=== PATIENT | male | born 1965 | race Caucasian/White ===

== ENCOUNTER → 2016-09-22 | Outpatient (CLI) | payer BC | LOC: LAB.O 07:14 | PROVIDERS: ATTEND Family Medicine | DX: K76.0 Fatty (change of) liver, not elsewhere classified (principal) ==

== ENCOUNTER → 2016-11-23 | Outpatient (CLI) | payer BC | END | disposition home or self-care (01) | LOC: LAB.O 16:02 | DX: R74.0 Nonspecific elevation of levels of transaminase and lactic acid dehydrogenase [LDH] (principal) ==

== ENCOUNTER 2016-12-06 23:02 | Emergency (ER) | payer BC ==
--- NOTE | 2016-12-06 23:37 | ED.PDOC ---
History of Present Illness - General Chief Complaint: General Stated Complaint: weakness Time Seen by Provider: 12/06/16 23:23 Source: patient, RN notes reviewed, Vital Signs reviewed, family - Daughter Exam Limitations: no limitations - History of Present Illness Initial Comments: Patient is a 51 y/o male with a history of end stage liver disease who is brought in by his family. He has been feeling weak over the past few days and started becoming shaky today. He is sleeping all the time. He is not eating much because it make his sugars skyrocket. He has elevated ammonia often and is on chronic lactulose. He is having at least 3 large soft bowel movements daily. He has lost about 10 pounds in the last month. He has not seen his processing clerk for a month and has an appointment with him and his recreational vehicle resort manager next week. Timing/Duration: 24 hours Severity: moderate, severe Improving Factors: nothing Worsening Factors: nothing Associated Symptoms: weakness Allergies/Adverse Reactions: Allergies NO KNOWN ALLERGY Allergy (Verified 09/06/16 07:34) Home Medications: Ambulatory Orders Glimepiride 2 mg PO BEDTIME 09/06/16 Glimepiride 4 mg PO AC 09/06/16 Sitagliptin-Metformin HCl [Janumet Xr 50-1000 mg] 1 tab PO BID 09/06/16 Lactulose Syrup [Chronulac] 30 ml PO TID #90 ud 09/07/16 Milk Thistle (Silybum Marianum [Milk Thistle] 125 mg PO DAILY 12/06/16 Omeprazole Magnesium [Prilosec Otc] 20 mg PO AC 12/06/16 Saw Maribel (Serenoa Repens) [Saw Maribel] 450 mg PO DAILY 12/06/16 Review of Systems - Review of Systems Constitutional: States: malaise, weakness EENTM: States: no symptoms reported Respiratory: States: no symptoms reported Cardiology: States: no symptoms reported Gastrointestinal/Abdominal: States: no symptoms reported Genitourinary: States: no symptoms reported Musculoskeletal: States: no symptoms reported Skin: States: no symptoms reported Neurological: States: weakness Endocrine: States: unexplained weight loss, other - elevated glucose Hematologic/Lymphatic: States: no symptoms reported All other Systems: Reviewed and Negative Past Medical History (General) - Patient Medical History Hx Seizures: No Hx Stroke: No Hx Dementia: No Hx Asthma: No Hx of COPD: No Hx Cardiac Disorders: No Hx Congestive Heart Failure: No Hx Pacemaker: No Hx Hypertension: No Hx Thyroid Disease: No Hx Diabetes: Yes Hx Gastroesophageal Reflux: Yes Hx Renal Disease: No Hx Cancer: No Hx of HIV: No Hx Hepatitis C: Yes Hx MRSA: No Surgical History: other - Vaccination History Hx Tetanus, Diphtheria Vaccination: No Hx Influenza Vaccination: No Hx Pneumococcal Vaccination: No Immunizations Up to Date: No - Social History Hx Tobacco Use: No Hx Chewing Tobacco Use: Yes Hx Alcohol Use: No - history Hx Substance Use: No Hx Substance Use Treatment: No Hx Depression: No Feels Threatened In Home Enviroment: No Feels Threatened In a Relationship: No Hx Physical Abuse: No Hx Emotional Abuse: No Hx Suspected Abuse: No Family Medical History - Family History Father Family History: Unknown Living Status: Hx Family Asthma: No Hx Family Congestive Heart Failure: No Hx Family Hypertension: No Hx Family Stroke: No Hx Cardiac Disease: Yes Hx Family Diabetes: Yes Hx Family Cancer: No Physical Exam - Physical Exam General Appearance: Comfortable, No apparent distress, Lethargic Ears, Nose, Throat: hearing grossly normal, normal ENT inspection Respiratory: lungs clear, normal breath sounds, no respiratory distress, no accessory muscle use Cardiovascular/Chest: regular rate, rhythm, no edema, no gallop, no murmur Gastrointestinal/Abdominal: normal bowel sounds, non tender, soft, no organomegaly Back Exam: no CVA tenderness Neurologic: oriented x 3, depressed affect Skin Exam: warm/dry Progress - Progress Progress: 12/07/16 01:05 Since Patient processing clerk is at [facility], Patient's family is requesting that he be transferred there. Initial call to [facility] was made as [phone] with a message left. I called back at [phone] and was able to speak with Dr. Murphy who accepted transfer. - Results/Orders Results/Orders: 12/06/16 12/06/16 12/07/16 23:10 23:15 00:58 Temperature 99.1 F 98.8 F Pulse Rate [ 94 H 85 monitor] Respiratory 18 18 16 Rate Blood Pressure 125/75 122/74 [Left Arm] O2 Sat by Pulse 95 95 Oximetry 12/07/16 00:05 URINE CULTURE W/COLONY COUNT Stat 12/07/16 00:48 Meropenem [Merrem] 1 gm Sodium Chl 0.9% 50Ml Min-Bag+ [NS 50ml MINI-BAG+] 50 ml IVPB ONCE 12/07/16 00:50 LACTIC ACID Stat BLOOD CULTURE Stat 12/07/16 00:59 Sodium Chloride 0.9% 1000ML [Ns 1000 ml] 1,000 ml IVS ONCE Laboratory Results WBC 4.4 K/mm3 (4.8-10.8) L 12/06/16 23:24 RBC 3.38 M/mm3 (4.70-6.10) L 12/06/16 23:24 Hgb 12.4 gm/dL (14.0-18.0) L 12/06/16 23:24 Hct 35.7 % (42.0-52.0) L 12/06/16 23:24 MCV 105.6 fl (80.0-94.0) H 12/06/16 23:24 MCH 36.6 pg (27.0-31.0) H 12/06/16 23:24 MCHC 34.8 g/dL (33.0-37.0) 12/06/16 23:24 RDW 13.4 % (11.5-14.5) 12/06/16 23:24 Plt Count 88 K/mm3 (130-400) L 12/06/16 23:24 MPV 6.6 fl (7.40-10.4) L 12/06/16 23:24 Absolute Neuts (auto) 2.40 K/uL (1.8-6.8) 12/06/16 23:24 Absolute Lymphs (auto) 1.00 K/uL (1.0-3.4) 12/06/16 23:24 Absolute Monos (auto) 0.60 K/uL (0.2-0.8) 12/06/16 23:24 Absolute Eos (auto) 0.30 K/uL (0.0-0.4) 12/06/16 23:24 Absolute Basos (auto) 0.10 K/uL (0.0-0.1) 12/06/16 23:24 Neutrophils % 54.9 % (42.0-78.0) 12/06/16 23:24 Lymphocytes % 23.5 % (20.0-50.0) 12/06/16 23:24 Monocytes % 13.9 % (2.0-9.0) H 12/06/16 23:24 Eosinophils % 6.3 % (1.0-5.0) H 12/06/16 23:24 Basophils % 1.4 % (0.0-2.0) 12/06/16 23:24 PT 13.8 SECONDS (9.4-12.5) H 12/07/16 00:31 INR 1.220 12/07/16 00:31 PTT (SP) 36.0 SECONDS (25.1-36.5) 12/07/16 00:31 Sodium 136 mmol/L (135-145) 12/06/16 23:24 Potassium 3.7 mmol/L (3.6-5.0) 12/06/16 23:24 Chloride 104 mmol/L (101-111) 12/06/16 23:24 Carbon Dioxide 27 mmol/L (21-31) 12/06/16 23:24 Anion Gap 8.7 (12-18) L 12/06/16 23:24 BUN 10 mg/dL (7-18) 12/06/16 23:24 Creatinine < 0.40 mg/dL (0.6-1.3) L 12/06/16 23:24 BUN/Creatinine Ratio 25.0 (10-20) H 12/06/16 23:24 Random Glucose 264 mg/dL (70-105) H 12/06/16 23:24 Serum Osmolality 280.2 mOsm/L (275-295) 12/06/16 23:24 Calcium 9.1 mg/dL (8.4-10.2) 12/06/16 23:24 Magnesium 1.7 mg/dL (1.8-2.5) L 12/07/16 00:00 Total Bilirubin 2.9 mg/dL (0.2-1.0) H* 12/06/16 23:24 AST 35 IU/L (10-42) 12/06/16 23:24 ALT 28 IU/L (10-60) 12/06/16 23:24 Alkaline Phosphatase 201 IU/L (42-121) H 12/06/16 23:24 Ammonia 123 umol/L (10-35) H* 12/06/16 23:24 Serum Total Protein 5.6 gm/dL (6.4-8.2) L 12/06/16 23:24 Albumin 2.7 g/dl (3.2-5.5) L 12/06/16 23:24 Globulin 2.9 gm/dL (2.3-3.5) 12/06/16 23:24 Albumin/Globulin Ratio 0.9 (1.1-1.9) L 12/06/16 23:24 Urine Color Yellow (Yellow) 12/07/16 00:05 Urine Appearance Cloudy (Clear) 12/07/16 00:05 Urine pH 7.0 (4.5-7.8) 12/07/16 00:05 Ur Specific [place] 1.020 (1.005-1.030) 12/07/16 00:05 Urine Protein 30 mg/dL 12/07/16 00:05 Urine Glucose (UA) Negative mg/dL (Negative) 12/07/16 00:05 Urine Ketones Negative mg/dL (NEGATIVE) 12/07/16 00:05 Urine Blood Moderate (Negative) H 12/07/16 00:05 Urine Nitrite Positive H 12/07/16 00:05 Urine Bilirubin Negative (NEGATIVE) 12/07/16 00:05 Urine Urobilinogen 4.0 mg/dL (0.2-1.0) H 12/07/16 00:05 Ur Leukocyte Esterase Moderate (Negative) H 12/07/16 00:05 Urine RBC 30-40 /hpf H 12/07/16 00:05 Urine WBC Tntc /hpf H 12/07/16 00:05 Ur Epithelial Cells 0 /hpf 12/07/16 00:05 Urine Bacteria 1+ 12/07/16 00:05 Departure - Departure Clinical Impression: Lethargy, Diabetes 1.5, managed as type 2 Urinary tract infection Qualifiers: Urinary tract infection type: site unspecified Hematuria presence: with hematuria Qualifier Code: (N39.0) Urinary tract infection, site not specified Hepatic cirrhosis Qualifiers: Hepatic cirrhosis type: unspecified hepatic cirrhosis Ascites presence: without ascites Qualifier Code: (K74.60) Unspecified cirrhosis of liver Hepatitis C infection Qualifiers: Viral hepatitis chronicity: chronic Hepatic coma status: without hepatic coma Qualifier Code: (B18.2) Chronic viral hepatitis C Time of Disposition: :06 Disposition: Transfer to Hospital Home Medications: Ambulatory Orders Glimepiride 2 mg PO BEDTIME 09/06/16 Glimepiride 4 mg PO AC 09/06/16 Sitagliptin-Metformin HCl [Janumet Xr 50-1000 mg] 1 tab PO BID 09/06/16 Lactulose Syrup [Chronulac] 30 ml PO TID #90 ud 09/07/16 Milk Thistle (Silybum Marianum [Milk Thistle] 125 mg PO DAILY 12/06/16 Omeprazole Magnesium [Prilosec Otc] 20 mg PO AC 12/06/16 Saw Maribel (Serenoa Repens) [Saw Maribel] 450 mg PO DAILY 12/06/16 Transfer to Outside Facility - Transfer Information Accepting Provider:: Dr. Murphy Accepting Facility: [facility] Reason for Transfer: required specialist not available
[2016-12-07] MEDS ORDERED: MEROPENEM 1 GM in SODIUM CHL 0.9% 50ML MIN-BAG+ 50 ML IVPB ONE (00:48)
[2016-12-07] MEDS ORDERED: SODIUM CHLORIDE 0.9% 1000ML 1,000 ML ONE (00:49)
[2016-12-07] MEDS ORDERED: MEROPENEM 1 GM VIAL IVPB ONE (00:54)
[2016-12-07] MEDS ORDERED: SODIUM CHL 0.9% 50ML MIN-BAG+ 50 ML IVPB ONE (00:54)
[2016-12-07 00:59] VITALS: BP 122/74; TEMP 98.8
[2016-12-07] MEDS ORDERED: SODIUM CHLORIDE 0.9% 1000ML 1,000 ML IVS ONE (00:59)
[2016-12-07 01:25] VITALS: O2SAT 96
== END 2016-12-07 01:34 | disposition short-term general hospital (02) ==
LOC: ER 23:02
DX: K74.60 Unspecified cirrhosis of liver (principal); E11.9 Type 2 diabetes mellitus without complications; B18.2 Chronic viral hepatitis C; K21.9 Gastro-esophageal reflux disease without esophagitis; Z87.891 Personal history of nicotine dependence; Z79.899 Other long term (current) drug therapy

== ENCOUNTER → 2017-01-05 | Outpatient (CLI) | payer BC, OTHER | END | disposition home or self-care (01) | LOC: LAB.O 08:23 | PROVIDERS: ATTEND Psychiatry & Neurology Neurology | DX: K72.90 Hepatic failure, unspecified without coma (principal); Z94.2 Lung transplant status ==

== ENCOUNTER 2017-01-13 19:46 | Emergency (ER) | payer BC, OTHER ==
--- NOTE | 2017-01-13 19:57 | ED.PDOC ---
History of Present Illness - General Chief Complaint: General Stated Complaint: sleepy Time Seen by Provider: 01/13/17 19:50 Source: patient, RN notes reviewed, Vital Signs reviewed, family Exam Limitations: no limitations - History of Present Illness Initial Comments: Patient is a 51 y/o male with a history of cirrhosis who was brought in by EMS because of lethargy. Patient's tried to wake him earlier, but he would not completely wake up. He has been more drowsy today. He has only had one bowel movement today. He has had two doses of lactulose today. When EMS arrived, they were able to arouse him and he did not want to come in, however his insisted, so he agreed. He denies any pain. He is just very tired. Timing/Duration: other - Since this AM Severity: moderate Improving Factors: nothing Worsening Factors: nothing Associated Symptoms: weakness Allergies/Adverse Reactions: Allergies NO KNOWN ALLERGY Allergy (Verified 09/06/16 07:34) Home Medications: Ambulatory Orders Glimepiride 2 mg PO BEDTIME 09/06/16 Glimepiride 4 mg PO AC 09/06/16 Sitagliptin-Metformin HCl [Janumet Xr 50-1000 mg] 1 tab PO BID 09/06/16 Lactulose Syrup [Chronulac] 30 ml PO TID #90 ud 09/07/16 Milk Thistle (Silybum Marianum [Milk Thistle] 125 mg PO DAILY 12/06/16 Omeprazole Magnesium [Prilosec Otc] 20 mg PO AC 12/06/16 Saw [place] (Serenoa Repens) [Saw [place]] 450 mg PO DAILY 12/06/16 Review of Systems - Review of Systems Constitutional: States: malaise, weakness EENTM: States: no symptoms reported Respiratory: States: no symptoms reported Cardiology: States: no symptoms reported Gastrointestinal/Abdominal: States: no symptoms reported Genitourinary: States: no symptoms reported Musculoskeletal: States: no symptoms reported Skin: States: no symptoms reported Neurological: States: no symptoms reported Endocrine: States: no symptoms reported Hematologic/Lymphatic: States: no symptoms reported All other Systems: Reviewed and Negative Past Medical History (General) - Patient Medical History Hx Seizures: No Hx Stroke: No Hx Dementia: No Hx Asthma: No Hx of COPD: No Hx Cardiac Disorders: No Hx Congestive Heart Failure: No Hx Pacemaker: No Hx Hypertension: No Hx Thyroid Disease: No Hx Diabetes: Yes Hx Gastroesophageal Reflux: Yes Hx Renal Disease: No Hx Cancer: No Hx of HIV: No Hx Hepatitis C: Yes Hx MRSA: No - Vaccination History Hx Tetanus, Diphtheria Vaccination: No Hx Influenza Vaccination: No Hx Pneumococcal Vaccination: No - Social History Hx Tobacco Use: No Hx Chewing Tobacco Use: Yes Hx Alcohol Use: No - history Hx Substance Use: No Hx Substance Use Treatment: No Hx Depression: No Hx Physical Abuse: No Hx Emotional Abuse: No Hx Suspected Abuse: No Family Medical History - Family History Father Family History: Unknown Living Status: Hx Family Asthma: No Hx Family Congestive Heart Failure: No Hx Family Hypertension: No Hx Family Stroke: No Hx Cardiac Disease: Yes Hx Family Diabetes: Yes Hx Family Cancer: No Physical Exam - Physical Exam General Appearance: Frail, No apparent distress, Lethargic, Other - Patient does wake and answer questions appropriately, however, he quickly goes back to sleep. Ears, Nose, Throat: hearing grossly normal, normal ENT inspection Respiratory: lungs clear, normal breath sounds, no respiratory distress, no accessory muscle use Cardiovascular/Chest: regular rate, rhythm, no edema, no gallop, no murmur Gastrointestinal/Abdominal: non tender, soft, abnormal bowel sounds - hyperactive, hepatomegaly Extremity: non-tender, normal inspection, no pedal edema, no calf tenderness, other - Left BKA Neurologic: oriented x 3 Progress - Results/Orders Results/Orders: 01/13/17 01/13/17 19:55 21:55 Temperature 98.0 F Pulse Rate [ 94 H 91 H left arm] Respiratory 16 16 Rate Blood Pressure 136/84 136/72 [Left Arm] O2 Sat by Pulse 90 L 94 L Oximetry 01/13/17 19:57 URINALYSIS Stat Laboratory Results WBC 3.2 K/mm3 (4.8-10.8) L 01/13/17 20:00 RBC 3.36 M/mm3 (4.70-6.10) L 01/13/17 20:00 Hgb 12.3 gm/dL (14.0-18.0) L 01/13/17 20:00 Hct 35.1 % (42.0-52.0) L 01/13/17 20:00 MCV 104.4 fl (80.0-94.0) H 01/13/17 20:00 MCH 36.6 pg (27.0-31.0) H 01/13/17 20:00 MCHC 35.1 g/dL (33.0-37.0) 01/13/17 20:00 RDW 13.9 % (11.5-14.5) 01/13/17 20:00 Plt Count 74 K/mm3 (130-400) L 01/13/17 20:00 MPV 6.9 fl (7.40-10.4) L 01/13/17 20:00 Absolute Neuts (auto) 1.20 K/uL (1.8-6.8) L 01/13/17 20:00 Absolute Lymphs (auto) 1.30 K/uL (1.0-3.4) 01/13/17 20:00 Absolute Monos (auto) 0.40 K/uL (0.2-0.8) 01/13/17 20:00 Absolute Eos (auto) 0.20 K/uL (0.0-0.4) 01/13/17 20:00 Absolute Basos (auto) 0.00 K/uL (0.0-0.1) 01/13/17 20:00 Neutrophils % 38.6 % (42.0-78.0) L 01/13/17 20:00 Lymphocytes % 41.6 % (20.0-50.0) 01/13/17 20:00 Monocytes % 13.3 % (2.0-9.0) H 01/13/17 20:00 Eosinophils % 5.4 % (1.0-5.0) H 01/13/17 20:00 Basophils % 1.1 % (0.0-2.0) 01/13/17 20:00 Sodium 137 mmol/L (135-145) 01/13/17 20:00 Potassium 3.9 mmol/L (3.6-5.0) 01/13/17 20:00 Chloride 106 mmol/L (101-111) 01/13/17 20:00 Carbon Dioxide 25 mmol/L (21-31) 01/13/17 20:00 Anion Gap 9.9 (12-18) L 01/13/17 20:00 BUN 10 mg/dL (7-18) 01/13/17 20:00 Creatinine < 0.40 mg/dL (0.6-1.3) L 01/13/17 20:00 BUN/Creatinine Ratio 25.0 (10-20) H 01/13/17 20:00 Random Glucose 262 mg/dL (70-105) H 01/13/17 20:00 Serum Osmolality 281.9 mOsm/L (275-295) 01/13/17 20:00 Calcium 9.3 mg/dL (8.4-10.2) 01/13/17 20:00 Total Bilirubin 2.2 mg/dL (0.2-1.0) H* 01/13/17 20:00 AST 59 IU/L (10-42) H 01/13/17 20:00 ALT 48 IU/L (10-60) 01/13/17 20:00 Alkaline Phosphatase 193 IU/L (42-121) H 01/13/17 20:00 Ammonia 184 umol/L (10-35) H* 01/13/17 20:00 Serum Total Protein 5.9 gm/dL (6.4-8.2) L 01/13/17 20:00 Albumin 2.9 g/dl (3.2-5.5) L 01/13/17 20:00 Globulin 3.0 gm/dL (2.3-3.5) 01/13/17 20:00 Albumin/Globulin Ratio 1.0 (1.1-1.9) L 01/13/17 20:00 Departure - Departure Clinical Impression: Serum ammonia increased, Thrombocytopenia, Lethargy Hepatic cirrhosis Qualifiers: Hepatic cirrhosis type: unspecified hepatic cirrhosis Ascites presence: without ascites Qualified Code(s): K74.60 - Unspecified cirrhosis of liver Time of Disposition: 22:00 Disposition: Transfer to Hospital Condition: Poor Home Medications: Ambulatory Orders Glimepiride 2 mg PO BEDTIME 09/06/16 Glimepiride 4 mg PO AC 09/06/16 Sitagliptin-Metformin HCl [Janumet Xr 50-1000 mg] 1 tab PO BID 09/06/16 Lactulose Syrup [Chronulac] 30 ml PO TID #90 ud 09/07/16 Milk Thistle (Silybum Marianum [Milk Thistle] 125 mg PO DAILY 12/06/16 Omeprazole Magnesium [Prilosec Otc] 20 mg PO AC 12/06/16 Saw [place] (Serenoa Repens) [Saw [place]] 450 mg PO DAILY 12/06/16 Transfer to Outside Facility - Transfer Information Accepting Provider:: Dr. Vargas Accepting Facility: [facility] Reason for Transfer: required specialist not available
[2017-01-13 20:10] VITALS: TEMP 98
[2017-01-13 22:44] VITALS: BP 136/72
[2017-01-13] MEDS ORDERED: SODIUM CHLORIDE 0.9% 1000ML 1,000 ML IVS ONE (22:55)
[2017-01-14 00:04] VITALS: O2SAT 98
== END 2017-01-13 23:10 | disposition short-term general hospital (02) ==
LOC: ER 19:46
DX: K74.60 Unspecified cirrhosis of liver (principal); D69.6 Thrombocytopenia, unspecified; R53.83 Other fatigue; R79.89 Other specified abnormal findings of blood chemistry; K21.9 Gastro-esophageal reflux disease without esophagitis; Z79.899 Other long term (current) drug therapy

== ENCOUNTER → 2017-02-13 | Outpatient (CLI) | payer BC, OTHER | END | disposition home or self-care (01) | LOC: GMAL 17:02 | PROVIDERS: ATTEND Family Medicine | DX: N30.00 Acute cystitis without hematuria (principal) ==

== ENCOUNTER → 2017-03-06 | Outpatient (CLI) | payer BC | END | disposition home or self-care (01) | LOC: GMAL 10:40 | PROVIDERS: ATTEND Family Medicine | DX: N30.00 Acute cystitis without hematuria (principal) ==

== ENCOUNTER → 2017-04-10 | Outpatient (CLI) | payer BC | END | disposition home or self-care (01) | LOC: GMAL 10:33 | PROVIDERS: ATTEND Family Medicine | DX: R31.9 Hematuria, unspecified (principal) ==

== ENCOUNTER → 2017-04-12 | Outpatient (CLI) | payer BC ==
--- NOTE | 2017-04-13 09:14 | US ---
EXAM DESCRIPTION: Renal CLINICAL HISTORY: 52 years Male, HEMATURIA COMPARISON: None available FINDINGS: The right kidney measures 12.1 cm in length. There is no right-sided hydronephrosis or renal cortical thinning. There is a 1.5 centimeter calculus in the inferior pole of the right kidney. The left kidney measures 12.4 cm in length and there is no left-sided hydronephrosis or obstructing nephrolithiasis. Mild splaying of left renal pelvic fat is noted possibly related to an extra renal pelvis. IMPRESSION: 1.5 cm nonobstructing calculus inferior pole right kidney. Probable left-sided extrarenal pelvis without left-sided hydronephrosis or nephrolithiasis. If clinically suspicious of a ureteral calculus, noncontrast CT is suggested. Electronically signed by: Trenton Griffin MD 04/13/2017 9:12 AM CDT Workstation: [email or web address]
--- NOTE | 2017-04-13 09:18 | US ---
EXAM DESCRIPTION: Bladder CLINICAL HISTORY: 52 years Male, HEMATURIA COMPARISON: None. FINDINGS: There is no bladder wall thickening or bladder mass. Prevoid bladder volume 59 mL. Post void bladder volume 22 mL. IMPRESSION: Small amount of residual post void urine in the bladder, otherwise unremarkable exam. No bladder mass. Electronically signed by: Trenton Griffin MD 04/13/2017 9:17 AM CDT Workstation: [email or web address]
== END | disposition home or self-care (01) ==
LOC: US 08:08
PROVIDERS: ATTEND Family Medicine
DX: R31.9 Hematuria, unspecified (principal)

== ENCOUNTER → 2017-06-21 | Outpatient (CLI) | payer BC | END | disposition home or self-care (01) | LOC: GMAL 10:28 | PROVIDERS: ATTEND Family Medicine | DX: Z00.00 Encounter for general adult medical examination without abnormal findings (principal); Z00.01 Encounter for general adult medical examination with abnormal findings ==

== ENCOUNTER → 2017-06-28 | Outpatient (CLI) | payer BC ==
--- NOTE | 2017-06-29 13:50 | US ---
EXAM DESCRIPTION: Abdomen,Complete: Ultrasound. CLINICAL HISTORY: CIRRHOSIS COMPARISON: None Available. TECHNIQUE: Transabdominal scannin-dimensional and Doppler modes. FINDINGS: The gallbladder is normal in size, shape, and echogenicity, with no intraluminal stones or sludge. No fluid around the gallbladder. Borderline wall thickening 3.0 Mm. Common bile duct caliber 3.4 mm which is within normal limits. No stones in the visualized portion of the duct. Not tender with transducer pressure. The liver demonstrates heterogeneously increased echogenicity; contour of the liver capsule is smooth where seen. No fluid around the liver. Intrahepatic biliary ducts are non-dilated. Craniocaudal dimension in the mid-clavicular axis is 11.1 cm. Pancreas head, body, and tail normal in size and echogenicity. Pancreatic duct is not dilated. Normal Doppler vascularity in the catarina hepatis. Abdominal aorta diameter proximal 2.7 cm. Mid 1.9 cm. Distal 1.8 cm. IVC visualized; normal caliber. Spleen homogeneous echoes; long axis measurement is 15 cm. No fluid in the spleno-renal fossa. Right kidney measures 12.0 x 6.4 x 5.2 cm . Normal mid renal cortical thickness. Echogenicity normal with no hydronephrosis, no large calcifications, and no perinephric fluid. Contour minimally lobulated. Vascularity normal. Ureter not visualized. Left kidney measures 13.5 x 5.9 x 6.7 cm normal mid renal cortical thickness. Echogenicity normal with no hydronephrosis, no large calcifications, and no perinephric fluid. Contour minimally lobulated. Vascularity normal. Ureter not visualized. IMPRESSION: 1. No internal echoes in the gallbladder with borderline wall thickening. No fluid around the gallbladder. Nontender during scanning. Normal caliber of the common bile duct. 2. Liver showing heterogeneously increased echogenicity, no enlargement, with smooth capsule. Query history of inflammatory process? Normal intrahepatic ducts. No ascites. Splenomegaly. 3. Normal ultrasound of the pancreas. Normal caliber of the abdominal aorta. 4. Bilateral kidneys upper normal limits in size. Normal echoes with lobulated capsule. No hydronephrosis or perirenal fluid. Electronically signed by: Glen Perrin MD 06/29/2017 1:49 PM CDT
== END | disposition home or self-care (01) ==
LOC: LAB.O 08:48
DX: B19.20 Unspecified viral hepatitis C without hepatic coma (principal); K74.60 Unspecified cirrhosis of liver; R60.9 Edema, unspecified; E55.9 Vitamin D deficiency, unspecified

== ENCOUNTER → 2018-01-01 | Outpatient (CLI) | payer BC | LOC: LAB.O 07:16 | PROVIDERS: ATTEND Internal Medicine | DX: K74.60 Unspecified cirrhosis of liver (principal); K72.90 Hepatic failure, unspecified without coma; R60.9 Edema, unspecified ==

== ENCOUNTER 2018-03-25 05:29 | Day surgery (SDC) | payer BC ==
[2018-03-25] MEDS ORDERED: TROP 1%/CYCLOPEN 1%/PHENYL 2% DROPS ONE (06:00)
[2018-03-25] MEDS ORDERED: MIDAZOLAM INJ 2 MG/2 ML VIAL ONE (07:10)
[2018-03-25] MEDS ORDERED: PROPARACAINE 0.5% OPHTH SOL 15 ML BTTL LEFT_EYE ONE (08:42)
[2018-03-25] MEDS ORDERED: TOBRAMYCIN SULF 0.3 % OPHT SOL 1 DROP LEFT_EYE ONE ×2 (08:44→08:57)
[2018-03-25] MEDS ORDERED: DEXAMETHASONE 0.1% OPHTH SOL 1 DROP LEFT_EYE ONE ×2 (08:44→08:57)
[2018-03-25] MEDS ORDERED: BRIMONIDINE 0.2% OPHTH DROPS LEFT_EYE ONE ×2 (08:45→08:57)
== END 2018-03-25 09:33 | disposition home or self-care (01) ==
LOC: AMB 05:29
PROVIDERS: ATTEND Ophthalmology
DX: H25.12 Age-related nuclear cataract, left eye (principal); I10 Essential (primary) hypertension; E11.36 Type 2 diabetes mellitus with diabetic cataract; K21.9 Gastro-esophageal reflux disease without esophagitis
CPT/HCPCS: 00142; 36416; 66984; 82948; J2250

== ENCOUNTER → 2018-07-16 | Outpatient (CLI) | payer BC ==
--- NOTE | 2018-07-16 17:23 | US ---
EXAM DESCRIPTION: Doppler,Abdomen: ULTRASOUND. CLINICAL HISTORY: CIRRHOSIS COMPARISON: None Available. TECHNIQUE: Transcutaneous scanning: Can-scale and Doppler modes. FINDINGS: Abdominal aorta is normal caliber from the proximal segment to the distal bifurcation measuring 2.2 cm proximally, 1.8 cm. Segment and 1.7 cm distally. Right mid and left hepatic venous flow unremarkable. Central venous flow hepatofugal direction. Hepatic artery flow hepatofugal direction. Peak velocity 60.26 cm/s. Portal venous flow hepatopedal direction. Normal caliber.. IMPRESSION: Vascularity of the liver is unremarkable. Electronically signed by: Glen Perrin MD 07/16/2018 5:22 PM CLINICAL TRANSPLANT COORDINATOR
--- NOTE | 2018-07-16 17:55 | US ---
EXAM DESCRIPTION: Abdomen,Complete: Ultrasound. CLINICAL HISTORY: CIRRHOSIS COMPARISON: Abdominal ultrasound 06/28/2017. Doppler ultrasound of the abdomen on this visit. TECHNIQUE: Transabdominal scannin-dimensional and Doppler modes. FINDINGS: Gallbladder: No intraluminal stones or sludge. Gallbladder wall thickening 3.4 mm. Common bile duct: Normal caliber 4.5 mm. Liver: Long axis of the right lobe is 11.6 cm. Coarse echotexture but not increased. Hepatopedal flow in the portal vein and hepatofugal flow in the hepatic vein. Hepatic artery flow visualized. Pancreas: Not well visualized due to intestinal gas.. Abdominal aorta: Normal caliber from the proximal segment to the bifurcation. IVC: visualized; normal caliber. Spleen normal echogenicity; long axis measurement is 14.4 cm. Right kidney: 12.0 cm long axis. Normal cortical thickness and echogenicity. Bright echogenic object in the inferior pole of the right kidney with acoustic shadowing, measuring 1.7 cm and suggestive of a renal stone. No hydronephrosis. Left kidney: 13.4 cm long axis with normal cortical thickness and echogenicity. Echogenic objects in the inferior pole of the left kidney measuring 11.1 mm and 9.2 mm consistent with renal stones. No hydronephrosis. IMPRESSION: 1. Minimal thickening of the gallbladder wall without fluid. This has increased since the prior study. No intraluminal stones or sludge. Nontender during scanning. Normal caliber of the common bile duct. 2. Coarse echogenic texture in the liver with no enlargement. Normal vascularity. No ascites. Findings are consistent with clinical history. Pancreas was not seen due to intestinal gas. Spleen is borderline enlarged stable since the prior study.. 3. Normal size of the right kidney with no hydronephrosis. 1.7 cm stone in the lower pole. Normal size of the left kidney with no hydronephrosis. 2 stones averaging 1 cm diameter in the lower pole. Stones were not seen in either kidney on the prior study. Electronically signed by: Glen Perrin MD 07/16/2018 5:53 PM FORGING MACHINE HAND
== END ==
LOC: US 08:04
PROVIDERS: ATTEND Internal Medicine
DX: B19.20 Unspecified viral hepatitis C without hepatic coma (principal); K72.90 Hepatic failure, unspecified without coma; K74.60 Unspecified cirrhosis of liver; R60.9 Edema, unspecified

== ENCOUNTER → 2018-08-13 | Outpatient (CLI) | payer BC, OTHER | LOC: LAB.O 07:40 | PROVIDERS: ATTEND Family Medicine | DX: R74.8 Abnormal levels of other serum enzymes (principal) ==

== ENCOUNTER 2018-09-09 22:03 | Emergency (ER) | payer BC, OTHER ==
[2018-09-09] MEDS ORDERED: ASPIRIN (CHEWABLE) 81 MG TAB PO ONE (22:45)
[2018-09-09] MEDS ORDERED: NITROGLYCERIN 2% 1 GM UD TOP ONE (22:46)
--- NOTE | 2018-09-10 00:36 | ED.PDOC ---
History of Present Illness - General Chief Complaint: Problem Stated Complaint: Flank pain Time Seen by Provider: 09/09/18 22:41 Source: patient, family Exam Limitations: no limitations - History of Present Illness Initial Comments: Patient presents with right flank pain since this morning. Sudden onset. Sharp. Radiates to the right side. Had one previous episode one year ago. No fever. No dysuria. No other complaints. Denies history of kidney stones. Says he has had a "kidney infection" before. Timing/Duration: other - 12 hours Severity: mild Improving Factors: nothing Worsening Factors: nothing Associated Symptoms: denies symptoms Allergies/Adverse Reactions: Allergies NO KNOWN ALLERGY Allergy (Verified 09/06/16 07:34) Home Medications: Ambulatory Orders Glimepiride 2 mg PO BEDTIME 09/06/16 Glimepiride 4 mg PO AC 09/06/16 Lactulose Syrup [Chronulac] 30 ml PO TID #90 ud 09/07/16 Milk Thistle (Silybum Marianum [Milk Thistle] 125 mg PO DAILY 12/06/16 Ketorolac Tromethamine [Toradol Tabs] 10 mg PO Q6HRS #10 tab 09/10/18 Sitagliptin-Metformin HCl [Janumet Xr] 1 tab PO BID 09/10/18 Tamsulosin HCl [Flomax] 0.4 mg PO DAILY #5 cap 09/10/18 Review of Systems - Review of Systems Constitutional: States: no symptoms reported EENTM: States: no symptoms reported Respiratory: States: no symptoms reported Cardiology: States: no symptoms reported Gastrointestinal/Abdominal: States: no symptoms reported Genitourinary: States: see HPI Musculoskeletal: States: no symptoms reported Skin: States: no symptoms reported Neurological: States: no symptoms reported Endocrine: States: no symptoms reported Hematologic/Lymphatic: States: no symptoms reported Past Medical History (General) - Patient Medical History Hx Seizures: No Hx Stroke: No Hx Dementia: No Hx Asthma: No Hx of COPD: No Hx Cardiac Disorders: No Hx Congestive Heart Failure: No Hx Pacemaker: No Hx Hypertension: No Hx Thyroid Disease: No Hx Diabetes: Yes Hx Gastroesophageal Reflux: Yes Hx Renal Disease: No Hx Cancer: No Hx of HIV: No Hx Hepatitis C: Yes Hx MRSA: Yes MRSA Source:: throat - Vaccination History Hx Tetanus, Diphtheria Vaccination: No Hx Influenza Vaccination: No Hx Pneumococcal Vaccination: No - Social History Hx Tobacco Use: No Hx Chewing Tobacco Use: Yes Hx Alcohol Use: No - history Hx Substance Use: No Hx Substance Use Treatment: No Hx Depression: No Hx Physical Abuse: No Hx Emotional Abuse: No Hx Suspected Abuse: No Family Medical History - Family History Father Family History: Unknown Living Status: Hx Family Asthma: No Hx Family Congestive Heart Failure: No Hx Family Hypertension: No Hx Family Stroke: No Hx Cardiac Disease: Yes Hx Family Diabetes: Yes Hx Family Cancer: No Physical Exam - Physical Exam General Appearance: Alert Respiratory: lungs clear Cardiovascular/Chest: regular rate, rhythm Gastrointestinal/Abdominal: normal bowel sounds, non tender, soft Back Exam: CVA tenderness (R) Progress - Progress Progress: 09/10/18 02:41 CT showed right 5 mm miduretral stone. Given Toradol 30 mg IV and Flomax 0.4 mg po in the E.D. Patient given RX for Flomax and toradol. E.R. warnings given. Care instructions given. Questions were elicited and answered. The patient and his voiced understanding and agreement with the plan. 09/10/18 02:43 Departure - Departure Clinical Impression: Ureteral stone with hydronephrosis Disposition: Discharge to Home or Self Care Condition: Good Departure Forms: ED Discharge - Pt. Copy, Patient Portal Self Enrollment Instructions: DI for Kidney Stones Diet: resume usual diet, other - Increase fluids Activity: increase activity as tolerated Referrals: Dereck Hinkle III, MD [Primary Care Provider] - 1-2 Weeks Prescriptions: Ketorolac Tromethamine [Toradol Tabs] 10 mg PO Q6HRS #10 tab Tamsulosin HCl [Flomax] 0.4 mg PO DAILY #5 cap Home Medications: Ambulatory Orders Glimepiride 2 mg PO BEDTIME 09/06/16 Glimepiride 4 mg PO AC 09/06/16 Lactulose Syrup [Chronulac] 30 ml PO TID #90 ud 09/07/16 Milk Thistle (Silybum Marianum [Milk Thistle] 125 mg PO DAILY 12/06/16 Ketorolac Tromethamine [Toradol Tabs] 10 mg PO Q6HRS #10 tab 09/10/18 Sitagliptin-Metformin HCl [Janumet Xr] 1 tab PO BID 09/10/18 Tamsulosin HCl [Flomax] 0.4 mg PO DAILY #5 cap 09/10/18 Additional Instructions: Drink plenty of fluids. Take medications as prescribed. Return to the E.R. for temperature above 100.4 or if pain does not stop in 3 days.
[2018-09-10 00:52] VITALS: TEMP 97.9
[2018-09-10] MEDS ORDERED: SODIUM CHLORIDE 0.9% 1000ML 1,000 ML IVS ONE (02:00)
--- NOTE | 2018-09-10 02:37 | CT ---
CT ABDOMEN AND PELVIS WITHOUT CONTRAST. 09/10/2018 CLINICAL HISTORY: Hematuria COMPARISON: CT pelvis without contrast 08/16/2011. TECHNIQUE: Axial [address] imaging of the abdomen and pelvis. Reformatted coronal and sagittal images reviewed. Examination was performed according to our departmental dose-optimization program, which includes automated exposure control, adjustment of the mA and/or kV according to patient size and/or use of iterative reconstruction technique. FINDINGS: LOWER THORAX: Minimal bilateral lower lobe atelectasis. The heart is enlarged. ABDOMEN: LIVER/GALLBLADDER: The liver is nodular and diminutive in size. Normal hepatic attenuation. Gallbladder is diffusely thickened. No gallstones. No biliary dilatation. SPLEEN/PANCREAS: Mild splenic enlargement 14.2 cm. Extensive varices are present in the left upper abdomen. Normal pancreas. Mild edema around the head of the pancreas and uncinate process. KIDNEYS/ADRENAL GLANDS: Normal adrenal glands. There is moderate dilatation of the right renal pelvis. AP pelvis is 1.9 cm. There are inferior right renal pelvic calcifications up to 1.7 cm. Inferior left renal pelvic calcifications collectively measuring up to 1.4 cm. There is a mid right ureteral 5 mm stone at the pelvic inlet. There is minimal right perinephric edema. RETROPERITONEAL VESSELS/NODES: Normal aorta and inferior vena cava caliber. Mild aortic atherosclerosis. No retroperitoneal adenopathy. There is an enlarged precaval lymph node up to 1.4 cm in short axis. BOWEL: Small hiatal hernia. Normal remaining stomach. Small bowel loops are unremarkable. Normal appendix in the right lower quadrant. Thickening of the ascending colon. A few sigmoid diverticula are present. No diverticulitis. MESENTERY/PERITONEUM: Very mild central mesenteric adenopathy with the largest nodes up to 9 mm in short axis. There is recanalization of the umbilical vein. There is no free air. Minimal fluid within the right paracolic gutter. PELVIS: BLADDER: Unremarkable bladder. GENITAL ORGANS: Dystrophic prosthetic calcifications. PERITONEUM: No pelvic adenopathy or free fluid. BONES AND SOFT TISSUES: Mild lower thoracic and lumbar spondylosis. Mild L3-4 diffuse disc bulge. Intact bony pelvis. Unremarkable hips. Mild diffuse subcutaneous body wall edema. IMPRESSION: 1. Obstructing mid right ureteral 5 mm stone at the pelvic inlet resulting in moderate right hydronephrosis and mild obstructive uropathy. Nonobstructing bilateral inferior renal pelvic calculi also noted. 2. Small hiatal hernia. 3. Hepatic cirrhosis with splenomegaly and varices as portal hypertension. 4. Mild pancreatitis involving the head and uncinate process. No pseudocyst or mass. 5. Minimal thickening of the ascending colon suspicious for colitis.. 6. Mild central mesenteric adenopathy. 7. Mild sigmoid colon diverticulosis. No diverticulitis. Electronically signed by: Myriam Sousa DO 09/10/2018 2:36 AM [facility]
[2018-09-10] MEDS ORDERED: KETOROLAC TROMETHAMINE INJ 30 MG/ML VIAL IV ONE (02:42)
[2018-09-10] MEDS ORDERED: TAMSULOSIN 0.4 MG CAP PO ONE (02:43)
[2018-09-10 03:41] VITALS: BP 137/83; O2SAT 96
== END 2018-09-10 03:42 | disposition home or self-care (01) ==
LOC: ER 22:03
DX: N13.2 Hydronephrosis with renal and ureteral calculous obstruction (principal); Z87.440 Personal history of urinary (tract) infections; E11.9 Type 2 diabetes mellitus without complications; K21.9 Gastro-esophageal reflux disease without esophagitis; Z87.891 Personal history of nicotine dependence; Z79.899 Other long term (current) drug therapy
CPT/HCPCS: 74176; 80048; 81001; 85025; J1885; J7030

== ENCOUNTER → 2019-04-09 | Outpatient (CLI) | payer BC, OTHER | LOC: LAB.O 07:48 | PROVIDERS: ATTEND Internal Medicine | DX: K74.60 Unspecified cirrhosis of liver (principal); B19.20 Unspecified viral hepatitis C without hepatic coma; K72.90 Hepatic failure, unspecified without coma; R60.9 Edema, unspecified ==

== ENCOUNTER → 2019-06-11 | Outpatient (CLI) | payer BC, OTHER | LOC: GMAL 09:01 | PROVIDERS: ATTEND Family Medicine | DX: K74.69 Other cirrhosis of liver (principal); E55.9 Vitamin D deficiency, unspecified; E11.65 Type 2 diabetes mellitus with hyperglycemia; E61.2 Magnesium deficiency; R23.3 Spontaneous ecchymoses; E29.1 Testicular hypofunction; Z79.899 Other long term (current) drug therapy ==

== ENCOUNTER → 2019-09-23 | Outpatient (CLI) | payer BC | LOC: GMAL 10:37 | PROVIDERS: ATTEND Family Medicine | DX: E61.2 Magnesium deficiency (principal); R30.0 Dysuria; R94.5 Abnormal results of liver function studies; E11.9 Type 2 diabetes mellitus without complications; Z79.899 Other long term (current) drug therapy ==

== ENCOUNTER → 2019-10-14 | Outpatient (CLI) | payer BC ==
--- NOTE | 2019-10-15 09:29 | CT ---
EXAM DESCRIPTION: Abdoment/Pelvis w/o Contrast: Computed Tomography. CLINICAL HISTORY: HEMATURIA UNSPECIFIED COMPARISON: CT scan of abdomen and pelvis without contrast September 2018. TECHNIQUE: Spiral-axial scans at 2.5 x 2.5 mm intervals through the abdomen and pelvis. 2.0mm reconstructions. No IV or oral contrast. Total Exam DLP: 647.1 mGy-cm. This exam was performed according to our departmental CT dose-optimization program which includes automated exposure control, adjustment of the mA and/or kV according to patient size and/or use of iterative reconstruction technique; to reduce radiation dose to as low as reasonably achievable (ALARA). Technically difficult study due to lack of IV contrast. FINDINGS: Kidneys and Ureters: 2.4 x 1.5 x 1.2 cm calcified stone in the medial inferior aspect of the right renal pelvis abutting the proximal right ureter, on image 2/71.. This stone has enlarged in size and dislodged from the inferior collecting system since the prior study. 3 stones measuring 4 mm, 4 mm, and 2 mm are visible in the inferior collecting system, on image 2/77. Soft tissue mass with partial calcification is medial to the renal pelvis and the large stone with increasing calcification compared to the prior study. Moderate hydronephrosis increased from the prior study. The 5 mm stone in the mid right ureter on the prior study is no longer visualized.. No hydroureter on the right. Mild to moderate hydronephrosis on the left, new since the prior study, with stable 9 mm radiodense stone in the inferior collecting system on image 2/92. 10.8 x 8.6 mm stone is in the proximal pelvic ureteral junction, on image 2/82, migrating from the inferior collecting system since the prior study. The left ureter is normal caliber, with fatty stranding abutting the ureteropelvic junction. Within the wall of the urinary bladder, abutting the UVJ a 6.2 mm radiodense stone, on axial image 2/164. Pelvic Organs: Bladder wall is thickened with the stone abutting the left UVJ as previously described. Prostate gland is impressing on the base of the urinary bladder with central calcifications. Unable to evaluate the size of the gland. No free fluid in the pelvic cavity. Lung and pleura bases: Bibasilar pleural-parenchymal scarring in the lower lobes. Liver, spleen, stomach, and adrenal glands: Rotation of the right lobe of the liver with the catarina hepatis almost directed anteriorly and the gallbladder fossa rotated anteriorly into the right no enlargement. Spleen is 15 cm slightly obliqued on the craniocaudal axis. Adrenal glands are not well seen stomach is not distended.. Pancreas, Gallbladder, Ducts: Gallbladder gonzalez appear slightly thickened within the gallbladder fossa with minimal increased density of the surrounding fat. Gallbladder is more distended than on the prior study. Limited visualization of the pancreas with lack of IV contrast, but stable from the prior study. Aorta: Minimal atherosclerotic calcification. Proximal abdominal aorta 2.8 x 2.7 cm, stable from the prior study. Small Bowel: Minimally distended by fluid with no significant amount of air or air-fluid levels. Stable from the prior study. Terminal Ileum/Cecum: Normal caliber; appendix not well seen. Stranding of the adjacent mesentery and fluid in the right paracolic gutter. Colon: Minimal colon and mostly gas proximal and mid segments. Minimal fecal matter and gas descending colon and sigmoid colon with minimal redundancy of the colon again noted. No air-fluid levels. Mesentery: Overall increased density with minimal fluid in the right paracolic gutter. Scattered mesenteric lymph nodes. Spine and Bony Pelvis: Minimal arthrosis of the hip joints. Lumbar and thoracic spondylosis. Abdominal Wall/Back Soft Tissues: Right fatty inguinal hernia not containing bowel stable. Edema/anasarca in the lower abdomen and pelvic subcutaneous tissues. IMPRESSION: 1. 2.4 cm calcified stone at the junction of the right renal pelvis and right ureter. Enlarged since the prior study one month earlier and migrated from the inferior collecting system. Residual smaller stones in the inferior collecting system. Moderate right hydronephrosis has increased since the prior study. 5 mm stone in the mid right ureter on the prior study is no longer present with normal caliber in the ureter. 2. Almost 11 mm radiodense stone in the proximal left renal pelvic ureteral junction, migrating from the inferior collecting system since the prior study. Mild to moderate left hydronephrosis new since the prior study. Stable smaller stones in the inferior collecting system. Normal caliber left ureter with periureteral stranding abutting the left ureteropelvic junction. 6.2 mm radiodense stone within the bladder abutting the left UPJ, has recently passed from the left ureter. 3. Diffuse mesenteric edema abdomen and pelvis and also anasarca lower abdomen and pelvic soft tissues. Minimal fluid in the right paracolic gutter also seen on the prior study. Multiple mesenteric lymph nodes in the abdomen and upper pelvis. Also visualized on the prior study. 4. Possible cholecystitis with thickened gallbladder gonzalez. More distended than the prior study. CT scan not sensitive for gallstones. 5. Questionable partially calcified mass medial to the right renal collecting system of unknown origin. Mild colonic constipation. 6. 2.8 cm abdominal aortic aneurysm suspected. Stable over one month interval. Recommend follow-up every 5 years. Reference: J Am Lamin Radiol 2013;10:789-794. Electronically signed by: Glen Perrin MD 10/15/2019 9:[address] [facility]
== END ==
LOC: CT 07:57
PROVIDERS: ATTEND Family Medicine
DX: N13.2 Hydronephrosis with renal and ureteral calculous obstruction (principal); R60.9 Edema, unspecified; K87 Disorders of gallbladder, biliary tract and pancreas in diseases classified elsewhere; N28.9 Disorder of kidney and ureter, unspecified; K59.00 Constipation, unspecified; I71.4 Abdominal aortic aneurysm, without rupture

== ENCOUNTER → 2019-10-27 | Outpatient (CLI) | payer BC, OTHER ==
--- NOTE | 2019-10-28 16:08 | CT ---
EXAM DESCRIPTION: Abdomen/Pelvis w/Contrast: Computed Tomography. CLINICAL HISTORY: 54 years Male HEMATURIA COMPARISON: CT scan of the abdomen without contrast October 14. TECHNIQUE: Spiral-axial scans at 5 x 5 mm intervals through the abdomen and pelvis, after nonionic IV contrast without oral contrast. Coronal and sagittal 2.0 mm reconstructions. Delayed scans, liver through the pelvis. Axial-spiral 5mm. No adverse reactions. Total Exam DLP: (10 1106 mGy-cm. This exam was performed according to our departmental dose-optimization program which includes automated exposure control, adjustment of the mA and/or kV according to patient size and/or use of iterative reconstruction technique; to reduce radiation dose to as low as reasonably achievable (ALARA). FINDINGS: Lung bases and pleura: Unchanged, minimal scarring. Liver, Stomach, Spleen, Adrenal Glands: Again noted is rotation of the liver with the catarina hepatis and gallbladder rotated to the left hand are oriented anteriorly and slightly to the left. Small liver with minimal lobulation of the capsule consistent with history of cirrhosis. No change in stomach and adrenal glands and spleen.. Pancreas, Gallbladder, Ducts: Gallbladder wall thickening stable. No change in appearance of the duct and pancreas.. Kidneys and Ureters: Hydronephrosis in the right kidney stable with 2.4 cm calcified stone in the medial inferior aspect of the right renal pelvis abutting the proximal right ureter. 3 stones measuring 4 mm and less in the inferior collecting system with no change in position. The small soft tissue structure medial to the large renal pelvic stone in proximal ureter contains calcification inferiorly and opacifies to the same degree as the renal cortex more superiorly. Dimensions are 1.7 x 1.3 x 1.0 cm. Hydronephrosis stable in the left kidney with a 10 mm stone in the proximal left ureter and 9 mm stone in the inferior collecting system. Urinary bladder: Mild to moderate distention of the urinary bladder with wall thickening. The radiodense stone seen at the left UVJ on the prior study has migrated to the right side of the urinary bladder, and not associated with the right UVJ. Mesentery: Limited amount of mesentery again noted with fluid seen in the bilateral inferior paracolic gutters. Minimal fatty stranding not localized. No free air. Aorta: No change in caliber of the proximal segment 2.8 x 2.7 cm. Minimal atherosclerotic calcification and normal outer caliber. Small Bowel: Segments are prominent with diffuse gas but no evidence of obstruction or significant air-fluid levels. Terminal Ileum/Cecum: No change from the prior study. Appendix not seen. Minimal fluid in the adjacent right pericolic gutter. Colon: Fecal material and gas mostly in the distal descending colon and rectosigmoid. No complications. Pelvic Organs: No free fluid. Enlarged prostate gland again noted impressing on the base of the urinary bladder. Rectosigmoid distended with fecal matter. Spine and Bony Pelvis: No change from the prior study. Abdominal Wall/Back Soft Tissues: Edema in the soft tissues abutting the bilateral buttocks, and lower abdomen, and the bilateral flank regions. Stable since the prior study. IMPRESSION: 1. Partially calcified 1.7 cm mass or tissue abutting the right renal hilum, proximal right ureter, and large stone partially in the renal pelvis and almost entering the ureter. Differential includes vascular structure such as renal artery aneurysm or dilated renal vein branch. Also consider small renal mass. Similar size with slightly more calcification compared to CT scan one year ago. Consider urologic consult. 2. Stable bilateral kidney stones with hydronephrosis compared to CT scan on October 14. No change in size of the 6.2 mm stone, but now in the right posterior urinary bladder, no longer in the left UVJ. Ureters did not opacify with IV contrast on the delayed images. 3. Minimal mesenteric edema and minimal fluid in the bilateral paracolic gutters with subcutaneous anasarca, stable since the prior study. Cirrhotic liver. Wall thickening of the gallbladder unchanged. 4. 2.8 cm abdominal aortic aneurysm stable since the prior study. Recommend follow-up every 5 years. Reference: J Am Lamin Radiol 2013;10:789-794. Electronically signed by: Glen Perrin MD 10/28/2019 4:07 PM [employer]
== END ==
LOC: CT 08:05
PROVIDERS: ATTEND Family Medicine
DX: N13.2 Hydronephrosis with renal and ureteral calculous obstruction (principal); N21.0 Calculus in bladder; N28.9 Disorder of kidney and ureter, unspecified; I71.4 Abdominal aortic aneurysm, without rupture; K74.60 Unspecified cirrhosis of liver; K87 Disorders of gallbladder, biliary tract and pancreas in diseases classified elsewhere; R60.9 Edema, unspecified

== ENCOUNTER 2019-11-17 09:32 | Inpatient (IN) | payer BC, OTHER ==
[2019-11-17] MEDS ORDERED: SODIUM CHLORIDE 0.9% (FLUSH) 10 ML SYG IV PRN ×2 (09:41→16:56)
[2019-11-17] MEDS ORDERED: SODIUM CHLORIDE 0.9% 1000ML 1,000 ML IVS ONE ×2 (10:15→12:35)
[2019-11-17] MEDS ORDERED: ALBUTEROL SULFATE 2.5 MG/3 ML VIAL NEB ONE (10:21)
--- NOTE | 2019-11-17 11:04 | RAD ---
EXAM DESCRIPTION: Chest,1 View CLINICAL HISTORY: 54 years Male, altered mental status, edema COMPARISON: 09/06/2016 FINDINGS: One view/radiograph Heart size and pulmonary vessels are within normal limits. There is no pneumothorax or pleural effusion. The lungs are clear bilaterally. The soft tissues are unremarkable. No acute osseous findings. IMPRESSION: No acute cardiopulmonary abnormality. Electronically signed by: Yifan Linda MD 11/17/2019 11:02 AM CDT
--- NOTE | 2019-11-17 12:05 | CT ---
EXAM DESCRIPTION: Abdomen/Pelvis w/wo Contrast CLINICAL HISTORY: confusion, hematuria, s/p ureteral stents COMPARISON: October 27, 2019 TECHNIQUE: Pre- and postcontrast CT images of the abdomen and pelvis are obtained. This exam was performed according to our departmental dose-optimization program, which includes automated exposure control, adjustment of the mA and/or kV according to patient size and/or use of iterative reconstruction technique . FINDINGS: Visualized lung bases show no acute findings. The heart is mildly enlarged. Small liver with diffuse nodularity of the capsule is seen. No enhancing hepatic mass. Recanalized umbilical vein is dilated extending along the anterior abdominal wall to the umbilicus and ultimately right common femoral vein. Enlarged spleen with severe dilated vessels in the left upper quadrant of the abdomen including splenic vein and large spleen to left renal vein collateral. Mild esophageal and gastric varices with prominent vessels throughout the mesentery of the abdomen. Interval increase in ascites throughout the abdomen and pelvis which is now moderate. Spleen is unremarkable. Adrenal glands not seen. Gallbladder is contracted with calcification in the region of the neck of the gallbladder which could represent gallbladder calculus versus vascular calcification. Calcification is also seen near the head of the pancreas and second portion of the duodenum without obvious biliary tract obstruction. Mild scattered vascular calcium patient are seen. Interval placement of bilateral ureteral stents. Calcification in the right renal pelvis to midpole calyces now measures 2.4 cm. Interval improvement of the right hydronephrosis seen on previous exam. Left renal pelvis to proximal ureter calcification measuring 9 mm is again seen with nonobstructing calculi in lower pole calyx of the left kidney. Mild improvement of the previously seen left hydronephrosis. Ureteral stents appear in good positioning. Urinary bladder poorly distended but otherwise unremarkable. Moderate prostate calcifications are seen. Abdominal aorta measures 2 cm maximum diameter. The appendix appears retrocecal and unremarkable. Stomach is poorly distended with circumferential wall thickening. Diffuse edema seen throughout the loops of small bowel in the abdomen. No bowel obstruction. Colon is normally distended. Mild scattered diverticuli. No pathologically enlarged abdominal or retroperitoneal lymphadenopathy. No free intraperitoneal air. Moderate spondylitic changes of the spine are seen. Diffuse soft tissue fat stranding around the abdomen and pelvis. IMPRESSION: Interval placement of bilateral ureteral stents with improvement of the bilateral hydronephrosis although persistent mild left hydronephrosis is seen. Bilateral nephrolithiasis is unchanged from previous exam. Mild circumferential urinary bladder wall thickening could be secondary to poor distention of the urinary bladder versus some degree of chronic bladder outlet obstruction. Interval increased volume of ascites throughout the abdomen and pelvis compared to previous. Cirrhotic liver with evidence of portal hypertension is again seen including multiple varices and collateral vessels throughout the abdomen. Diffuse circumferential wall thickening throughout the small bowel is nonspecific. No bowel obstruction. This could represent infectious or inflammatory etiology. Mild to moderate diffuse soft tissue anasarca is seen. Contracted gallbladder. Question gallstone versus vascular calcification in the neck of the gallbladder. Calcification near the head of the pancreas at the expected location of the distal common bile duct is also seen without obvious biliary ductal dilatation. Electronically signed by: Carlos Hicks MD 11/17/2019 12:03 PM CDT
[2019-11-17] MEDS ORDERED: cefTRIAXone SODIUM 2 GM in SODIUM CHL 0.9% 100ML MINI-BAG 100 ML IVPB ONE (12:14)
[2019-11-17] MEDS ORDERED: SODIUM CHL 0.9% 100ML MINI-BAG 100 ML IVPB ONE (12:19)
[2019-11-17] MEDS ORDERED: ONDANSETRON INJ 4 MG/2 ML VIAL IV PRN (16:56)
[2019-11-17] MEDS ORDERED: ALUM & MAG HYDROX-SIMETHICONE 30 ML UD PO PRN (16:56)
[2019-11-17] MEDS ORDERED: MAGNESIUM HYDROXIDE 30 ML UD PO PRN (16:56)
[2019-11-17] MEDS ORDERED: IV SET AND CAP CHANGE INJ INJ SCH (17:00)
[2019-11-17] MEDS ORDERED: GLUCAGON INJ 1 MG VIAL SUBCU PRN (18:31)
[2019-11-17] MEDS: SPIRONOLACTONE 25 MG TAB PO SCH (18:42)
[2019-11-17] MEDS ORDERED: FUROSEMIDE INJ 40 MG/4 ML VIAL IV ONE (20:00)
[2019-11-17] MEDS ORDERED: LACTULOSE SYRUP 20 GM/30 ML UD PO ONE (20:00)
[2019-11-18] MEDS: FUROSEMIDE 40 MG TAB PO SCH (09:49)
[2019-11-18] MEDS: ASCORBIC ACID 500 MG TAB PO SCH (09:49)
[2019-11-18] MEDS: SPIRONOLACTONE 25 MG TAB PO SCH (09:51)
--- NOTE | 2019-11-18 13:16 | RAD ---
EXAM DESCRIPTION: KUB CLINICAL HISTORY: gross hematurai wiothhx of UVJ stones nataliia/stents COMPARISON: None. IMPRESSION: Single AP supine view of the abdomen shows air-filled mildly dilated loops of small bowel and colon throughout the abdomen suggesting ileus. Bilateral double pigtail ureteral stents are now seen in good positioning. Diffuse groundglass appearance to the abdomen is seen suggesting ascites. Abnormal calcifications seen in the kidneys on previous CT scan are less well identified on plain film x-rays. 2 cm calcification in the mid to lower pole calyx of the right kidney is seen with faint calcifications in mid and lower pole calyces of the left kidney. No calcifications along the ureteral stent are seen. Electronically signed by: Cralos Hicks MD 11/18/2019 1:14 PM CDT
--- NOTE | 2019-11-18 16:48 | US ---
EXAM DESCRIPTION: Bladder: ULTRASOUND. CLINICAL HISTORY: 54 years Male pre/post void - gross hematuria hx UVJ nataliia stones COMPARISON: None Available. TECHNIQUE: Transcutaneous scanning: Can-scale and Doppler modes. FINDINGS: Fluid in the cul-de-sac surrounding the urinary bladder. Bladder wall thickening. Ureteral jets were not seen by color Doppler. Prevoid volume 108.3 mL. Post void volume 64.3 mL. Micturition volume 44.0 mL. Echogenic material in the base of the bladder bilaterally consistent with distal pigtail coils of the ureteral stents. Impression of the base of the bladder appears extrinsic and related to prostate gland which was not well seen. IMPRESSION: 1. Decreased micturition volume in the urinary bladder, less than 50% of the initial volume 2. Bilateral ureteral stent distal coils in the bladder cavity. 3. Mass effect on the base of bladder most likely prostate gland which was not well seen. Electronically signed by: Glen Perrin MD 11/18/2019 4:46 PM CDT
[2019-11-19] MEDS: FUROSEMIDE 40 MG TAB PO SCH (09:00)
[2019-11-19] MEDS: ASCORBIC ACID 500 MG TAB PO SCH (09:00)
[2019-11-19] MEDS: SPIRONOLACTONE 25 MG TAB PO SCH (09:00)
[2019-11-19 14:08] VITALS: BP 103/69; TEMP 98.2; O2SAT 92
== END 2019-11-19 17:50 | disposition home or self-care (01) | DRG 441 ==
LOC: ER 09:32 → MS 16:09 → OBSVTOIN 11-18 15:45
PROVIDERS: ADMIT Nurse Practitioner Family; ATTEND Nurse Practitioner Acute Care
PROC: BW2110Z Computerized Tomography (CT Scan) of Abdomen and Pelvis using Low Osmolar Contrast, Unenhanced and Enhanced (ICD-10-PCS; principal; 2019-11-17)
DX: K72.90 Hepatic failure, unspecified without coma (principal); A41.9 Sepsis, unspecified organism; N39.0 Urinary tract infection, site not specified; K76.6 Portal hypertension; R31.0 Gross hematuria; K74.60 Unspecified cirrhosis of liver; B18.2 Chronic viral hepatitis C; K31.89 Other diseases of stomach and duodenum; Z96.0 Presence of urogenital implants; Z89.512 Acquired absence of left leg below knee; F17.290 Nicotine dependence, other tobacco product, uncomplicated; E66.9 Obesity, unspecified; Z79.4 Long term (current) use of insulin; Z79.899 Other long term (current) drug therapy; K21.9 Gastro-esophageal reflux disease without esophagitis; Z86.14 Personal history of Methicillin resistant Staphylococcus aureus infection; E11.9 Type 2 diabetes mellitus without complications

== ENCOUNTER 2019-11-30 10:11 | Emergency (ER) | payer BC, OTHER ==
[2019-11-30] MEDS ORDERED: SODIUM CHLORIDE 0.9% (FLUSH) 10 ML SYG IV PRN (10:28)
[2019-11-30] MEDS ORDERED: ONDANSETRON INJ 4 MG/2 ML VIAL IV ONE (10:28)
--- NOTE | 2019-11-30 10:32 | ED.PDOC ---
History of Present Illness - General Chief Complaint: Cardiovascular Problem Stated Complaint: Chest pain, cough, SOB, N/V Time Seen by Provider: 11/30/19 10:27 - History of Present Illness Initial Comments: c/o having cough with congestion associated with lower chest pain and sob started since 1 day, some abdominal bloating with nausea Allergies/Adverse Reactions: Allergies NO KNOWN ALLERGY Allergy (Verified 12/01/19 02:06) Home Medications: Ambulatory Orders Glimepiride 4 mg PO BID 09/06/16 Milk Thistle (Silybum Marianum [Milk Thistle] 125 mg PO DAILY 12/06/16 Sitagliptin-Metformin HCl [Janumet Xr 50-1000 mg] 1 tab PO BID 09/10/18 Tamsulosin HCl [Flomax] 0.4 mg PO DAILY #5 cap 09/10/18 Ascorbic Acid [Vitamin C] 500 mg PO DAILY 11/17/19 Cephalexin 500 mg PO BID 11/17/19 Cyanocobalamin [Vitamin B-12] 5,000 mcg PO DAILY 11/17/19 Furosemide 40 mg PO DAILY 11/17/19 Insulin Degludec [Tresiba Flextouch] 20 unit SC DAILY 11/17/19 Lactulose [Kristalose] 20 gm PO TID 11/17/19 Non-Formulary Medication 550 mg PO BID 11/17/19 Probiotic Product [Probiotic] 1 tab PO DAILY 11/17/19 Spironolactone 25 mg PO DAILY 11/17/19 levoFLOXacin [Levaquin] 500 mg PO DAILY #7 tab 11/19/19 Albuterol Inhaler [Ventolin Hfa Inhaler] 1 puff INH Q4HR 10 Days inh 11/30/19 Benzonatate 200 mg PO TID #12 cap 11/30/19 Ondansetron Tab [Zofran Tab] 0 mg PO TID #12 tab 11/30/19 levoFLOXacin [Levaquin] 500 mg PO DAILY #10 tab 11/30/19 Review of Systems - Review of Systems Constitutional: States: no symptoms reported EENTM: States: no symptoms reported Respiratory: States: see HPI Cardiology: States: no symptoms reported Gastrointestinal/Abdominal: States: see HPI Genitourinary: States: no symptoms reported Musculoskeletal: States: no symptoms reported Skin: States: no symptoms reported Neurological: States: no symptoms reported Endocrine: States: no symptoms reported Hematologic/Lymphatic: States: no symptoms reported Past Medical History (General) - Patient Medical History Hx Seizures: No Hx Stroke: No Hx Dementia: No Hx Asthma: No Hx of COPD: No Hx Cardiac Disorders: No Hx Congestive Heart Failure: No Hx Pacemaker: No Hx Hypertension: No Hx Thyroid Disease: No Hx Diabetes: Yes Hx Gastroesophageal Reflux: Yes Hx Renal Disease: No Hx Cancer: No Hx of HIV: No Hx Hepatitis C: Yes Hx MRSA: Yes MRSA Source:: throat - Vaccination History Hx Tetanus, Diphtheria Vaccination: No Hx Influenza Vaccination: No Hx Pneumococcal Vaccination: No - Social History Hx Tobacco Use: No Hx Chewing Tobacco Use: Yes Hx Alcohol Use: No - history Hx Substance Use: No Hx Substance Use Treatment: No Hx Depression: No Hx Physical Abuse: No Hx Emotional Abuse: No Hx Suspected Abuse: No Family Medical History - Family History Father Family History: Unknown Living Status: Hx Family Asthma: No Hx Family Congestive Heart Failure: No Hx Family Hypertension: No Hx Family Stroke: No Hx Cardiac Disease: Yes Hx Family Diabetes: Yes Hx Family Cancer: No Physical Exam - Physical Exam General Appearance: Alert, Comfortable Eyes, Ears, Nose, Throat Exam: PERRL/EOMI, normal ENT inspection Neck: non-tender, full range of motion, supple, normal inspection Respiratory: lungs clear, normal breath sounds, no respiratory distress, no accessory muscle use Cardiovascular/Chest: regular rate, rhythm Gastrointestinal/Abdominal: soft Extremity: normal range of motion, non-tender, normal inspection, pedal edema Neurologic: no motor/sensory deficits, alert, normal mood/affect, oriented x 3 Skin Exam: normal color, warm/dry Lymphatic: no adenopathy Progress - Progress Progress: 11/30/19 13:17 11/30/19 10:28 Sodium Chloride 0.9% (Flush) [Saline Flush Syringe] 10 ml IV PRN PRN Pulse Ox Stat 11/30/19 10:30 EKG STAT 11/30/19 13:17 TROPONIN-I Stat Laboratory Results WBC 16.3 K/mm3 (4.8-10.8) H 11/30/19 10:45 RBC 2.83 M/mm3 (4.70-6.10) L 11/30/19 10:45 Hgb 10.0 gm/dL (14.0-18.0) L 11/30/19 10:45 Hct 29.2 % (42.0-52.0) L 11/30/19 10:45 MCV 103.3 fl (80.0-94.0) H 11/30/19 10:45 MCH 35.2 pg (27.0-31.0) H 11/30/19 10:45 MCHC 34.1 g/dL (33.0-37.0) 11/30/19 10:45 RDW 14.5 % (11.5-14.5) 11/30/19 10:45 Plt Count 158 K/mm3 (130-400) 11/30/19 10:45 MPV 7.8 fl (7.40-10.4) 11/30/19 10:45 Absolute Neuts (auto) Not Reportable 11/30/19 10:45 Absolute Lymphs (auto) Not Reportable 11/30/19 10:45 Absolute Monos (auto) Not Reportable 11/30/19 10:45 Absolute Eos (auto) Not Reportable 11/30/19 10:45 Absolute Basos (auto) Cancelled 11/30/19 10:45 Neutrophils % Not Reportable 11/30/19 10:45 Neutrophils % (Manual) 62.0 % (42.0-78.0) 11/30/19 10:45 Lymphocytes % Not Reportable 11/30/19 10:45 Lymphocytes % (Manual) 14.0 % 11/30/19 10:45 Monocytes % Not Reportable 11/30/19 10:45 Monocytes % (Manual) 6.0 % 11/30/19 10:45 Eosinophils % Not Reportable 11/30/19 10:45 Basophils % Not Reportable 11/30/19 10:45 Band Neutrophils 16.0 % (0-2) H* 11/30/19 10:45 Eosinophils 2.0 % 11/30/19 10:45 Basophils 0.0 % 11/30/19 10:45 Differential Comment Cancelled 11/30/19 10:45 Platelet Estimate Normal (NORMAL) 11/30/19 10:45 RBC Morphology Cancelled 11/30/19 10:45 PT 14.5 SECONDS (9.0-10.9) H 11/30/19 10:45 INR 1.46 (0.9-1.15) H 11/30/19 10:45 PTT (SP) 28.6 SECONDS (21.8-31.6) 11/30/19 10:45 D-Dimer, Quantitative 2510 ng/ml (131-400) H* 11/30/19 10:45 Sodium 126 mmol/L (135-145) L 11/30/19 10:45 Potassium 3.7 mmol/L (3.6-5.0) 11/30/19 10:45 Chloride 97 mmol/L (101-111) L 11/30/19 10:45 Carbon Dioxide 11 mmol/L (21-31) L* 11/30/19 10:45 Anion Gap 21.7 (12-18) H 11/30/19 10:45 BUN 52 mg/dL (7-18) H 11/30/19 10:45 Creatinine 1.74 mg/dL (0.6-1.3) H 11/30/19 10:45 BUN/Creatinine Ratio 29.9 (10-20) H 11/30/19 10:45 Random Glucose 208 mg/dL (70-105) H 11/30/19 10:45 Serum Osmolality 273.5 mOsm/L (275-295) L 11/30/19 10:45 Calcium 8.9 mg/dL (8.4-10.2) 11/30/19 10:45 Magnesium 2.1 mg/dL (1.8-2.5) 11/30/19 10:45 Total Bilirubin 2.1 mg/dL (0.2-1.0) H* 11/30/19 10:45 Direct Bilirubin 0.7 mg/dL (0-0.2) H 11/30/19 10:45 Indirect Bilirubin 1.4 mg/dL (0.2-0.8) H 11/30/19 10:45 AST 58 IU/L (10-42) H 11/30/19 10:45 ALT 42 IU/L (10-60) 11/30/19 10:45 Alkaline Phosphatase 106 IU/L (42-121) 11/30/19 10:45 Creatine Kinase 56 IU/L (38-174) 11/30/19 10:45 CK-MB (CK-2) 3.8 ng/mL (0.0-4.4) 11/30/19 10:45 CK-MB (CK-2) % Not Reportable 11/30/19 10:45 Troponin I < 0.02 ng/mL (0.01-0.05) 11/30/19 10:45 B-Natriuretic Peptide 13.2 pg/ml (0-100) 11/30/19 10:45 Serum Total Protein 4.9 gm/dL (6.4-8.2) L 11/30/19 10:45 Albumin 2.4 g/dl (3.2-5.5) L 11/30/19 10:45 Globulin Cancelled 11/30/19 10:45 Albumin/Globulin Ratio Cancelled 11/30/19 10:45 Lipase 36 U/L (22-51) 11/30/19 10:45 - EKG/XRAY/CT EKG: Sinus, Tachy Departure - Departure Clinical Impression: SOB (shortness of breath), Acute bronchitis, Chest pain, Emphysema lung Time of Disposition: 13:30 Disposition: Discharge to Home or Self Care Condition: Good Departure Forms: ED Discharge - Pt. Copy, Patient Portal Self Enrollment Instructions: DI for Chest Pain Diet: resume usual diet Activity: increase activity as tolerated, walking as tolerated Referrals: Dereck Hinkle III, MD [Primary Care Provider] - 1-2 Weeks Prescriptions: Albuterol Inhaler [Ventolin Hfa Inhaler] 1 puff INH Q4HR 10 Days inh Benzonatate 200 mg PO TID #12 cap levoFLOXacin [Levaquin] 500 mg PO DAILY #10 tab Ondansetron Tab [Zofran Tab] 0 mg PO TID #12 tab Home Medications: Ambulatory Orders Glimepiride 4 mg PO BID 09/06/16 Milk Thistle (Silybum Marianum [Milk Thistle] 125 mg PO DAILY 12/06/16 Sitagliptin-Metformin HCl [Janumet Xr 50-1000 mg] 1 tab PO BID 09/10/18 Tamsulosin HCl [Flomax] 0.4 mg PO DAILY #5 cap 09/10/18 Ascorbic Acid [Vitamin C] 500 mg PO DAILY 11/17/19 Cephalexin 500 mg PO BID 11/17/19 Cyanocobalamin [Vitamin B-12] 5,000 mcg PO DAILY 11/17/19 Furosemide 40 mg PO DAILY 11/17/19 Insulin Degludec [Tresiba Flextouch] 20 unit SC DAILY 11/17/19 Lactulose [Kristalose] 20 gm PO TID 11/17/19 Non-Formulary Medication 550 mg PO BID 11/17/19 Probiotic Product [Probiotic] 1 tab PO DAILY 11/17/19 Spironolactone 25 mg PO DAILY 11/17/19 levoFLOXacin [Levaquin] 500 mg PO DAILY #7 tab 11/19/19 Albuterol Inhaler [Ventolin Hfa Inhaler] 1 puff INH Q4HR 10 Days inh 11/30/19 Benzonatate 200 mg PO TID #12 cap 11/30/19 Ondansetron Tab [Zofran Tab] 0 mg PO TID #12 tab 11/30/19 levoFLOXacin [Levaquin] 500 mg PO DAILY #10 tab 11/30/19 Additional Instructions: Return to the ER if symptoms gets worse
[2019-11-30] MEDS ORDERED: MORPHINE SULFATE INJ 10 MG/ML VIAL IV ONE (11:27)
--- NOTE | 2019-11-30 12:06 | RAD ---
Study: Single Frontal Radiograph of the Chest. Indication:sob Comparison: November 17, 2019 Impression: Cardiomegaly without failure. Lung volumes low. Interstitial markings mildly prominent as on the prior exam suggesting emphysema. No consolidation, pleural effusion, or pneumothorax. Postoperative changes right shoulder. Electronically signed by: Marcos Campa MD 11/30/2019 12:04 PM CDT
--- NOTE | 2019-11-30 13:10 | CT ---
EXAM DESCRIPTION: CTA Chest CLINICAL HISTORY: 54 years, Male, sob and elevated D Dimer COMPARISON: CT abdomen November 17, 2019 TECHNIQUE: Axial images through the chest were performed after the administration of intravenous contrast using a pulmonary embolus protocol. MIPS were performed. This exam was performed according to our departmental dose-optimization program which includes use of Automated Exposure Control, adjustment of the mA and/or kV according to patient size and/or use of iterative reconstruction technique. Limitations: The images are degraded due to respiratory motion artifact FINDINGS: No central or lobar pulmonary emboli. The more distal branches are difficult to evaluate particularly in the lower lobes Trace bilateral pleural effusions with adjacent passive atelectasis. Overall the lungs are well aerated with no areas of dense consolidation. The trachea and central airways are clear. There is global cardiomegaly. No significant pericardial effusion. Mild coronary artery changes. Thoracic aorta is normal in caliber without dissection. Cirrhotic morphology of the liver and evidence of portal hypertension. Moderate volume ascites. Diffuse circumferential wall thickening of the esophagus. No acute osseous abnormalities. IMPRESSION: Limited study due to respiratory motion artifact. No central pulmonary embolism. Global cardiomegaly. Diffuse cervical ventral wall thickening of the esophagus may related to reflux disease underlying lesion is not excluded. Consider further evaluation with endoscopy if not recently performed. Cirrhotic morphology of the liver with portal hypertension and moderate ascites. Electronically signed by: Marty Pope DO 11/30/2019 1:09 PM CDT
[2019-11-30] MEDS ORDERED: IPRATROPIUM/ALBUTEROL 3 ML VIAL NEB ONE (13:23)
[2019-11-30] MEDS ORDERED: methylPREDNISolone SODIUM SUC 125 MG/2 ML VIAL IV ONE (13:23)
[2019-11-30 14:22] VITALS: BP 120/64; TEMP 96.5; O2SAT 99
== END 2019-11-30 14:22 | disposition home or self-care (01) ==
LOC: ER 10:11
DX: R07.9 Chest pain, unspecified (principal); J20.9 Acute bronchitis, unspecified; J43.9 Emphysema, unspecified; R00.0 Tachycardia, unspecified; R11.0 Nausea; R14.0 Abdominal distension (gaseous); E11.9 Type 2 diabetes mellitus without complications; K21.9 Gastro-esophageal reflux disease without esophagitis; Z86.19 Personal history of other infectious and parasitic diseases; Z87.891 Personal history of nicotine dependence; Z79.899 Other long term (current) drug therapy; Z79.4 Long term (current) use of insulin
CPT/HCPCS: 36415; 71045; 71275; 80048; 80076; 82550; 82553; 83690; 83880; 84484; 85007; 85025; 85379; 85610; 85730; 93005; 94640; J2270; J2405; J2930; J7620

== ENCOUNTER 2019-12-01 01:53 | Emergency (ER) | payer BC, OTHER ==
[2019-12-01] MEDS ORDERED: IPRATROPIUM/ALBUTEROL 3 ML VIAL NEB ONE ×2 (02:13→03:12)
[2019-12-01] MEDS ORDERED: SODIUM CHLORIDE 0.9% (FLUSH) 10 ML SYG IV PRN (02:23)
[2019-12-01] MEDS ORDERED: FUROSEMIDE INJ 40 MG/4 ML VIAL IV ONE (02:26)
[2019-12-01] MEDS ORDERED: SODIUM CHLORIDE 0.9% 1000ML 1,000 ML IVS ONE ×2 (03:00→04:00)
[2019-12-01] MEDS ORDERED: SODIUM CHLORIDE 0.9% 1000ML 1,000 ML ONE (03:49)
[2019-12-01] MEDS ORDERED: DOPamine PREMIX 250 ML IVPB ONE (03:51)
[2019-12-01] MEDS ORDERED: DOPamine PREMIX 400 MG in PREMIX BAG 1 BAG IVPB ONE (04:00)
[2019-12-01] MEDS ORDERED: levoFLOXacin 500MG IV 500 MG in PREMIX BAG 1 BAG IVPB ONE (04:34)
[2019-12-01 04:46] VITALS: BP 110/49; TEMP 95; O2SAT 97
[2019-12-01] MEDS ORDERED: levoFLOXacin 500MG IV 100 ML IVPB ONE (04:53)
[2019-12-01] MEDS ORDERED: SODIUM BICARBONATE VIAL 50 MEQ/50 ML VIAL ONE (04:59)
--- NOTE | 2019-12-01 05:20 | ED.PDOC ---
History of Present Illness - General Chief Complaint: Respiratory Problem Stated Complaint: SOB Time Seen by Provider: 12/01/19 02:23 - History of Present Illness Initial Comments: Pt came back says that his sob is getting worse , no chest pain , no fever or chills , does not feel ok Allergies/Adverse Reactions: Allergies NO KNOWN ALLERGY Allergy (Verified 12/01/19 02:06) Home Medications: Ambulatory Orders Glimepiride 4 mg PO BID 09/06/16 Milk Thistle (Silybum Marianum [Milk Thistle] 125 mg PO DAILY 12/06/16 Sitagliptin-Metformin HCl [Janumet Xr 50-1000 mg] 1 tab PO BID 09/10/18 Tamsulosin HCl [Flomax] 0.4 mg PO DAILY #5 cap 09/10/18 Ascorbic Acid [Vitamin C] 500 mg PO DAILY 11/17/19 Cephalexin 500 mg PO BID 11/17/19 Cyanocobalamin [Vitamin B-12] 5,000 mcg PO DAILY 11/17/19 Furosemide 40 mg PO DAILY 11/17/19 Insulin Degludec [Tresiba Flextouch] 20 unit SC DAILY 11/17/19 Lactulose [Kristalose] 20 gm PO TID 11/17/19 Non-Formulary Medication 550 mg PO BID 11/17/19 Probiotic Product [Probiotic] 1 tab PO DAILY 11/17/19 Spironolactone 25 mg PO DAILY 11/17/19 levoFLOXacin [Levaquin] 500 mg PO DAILY #7 tab 11/19/19 Albuterol Inhaler [Ventolin Hfa Inhaler] 1 puff INH Q4HR 10 Days inh 11/30/19 Benzonatate 200 mg PO TID #12 cap 11/30/19 Ondansetron Tab [Zofran Tab] 0 mg PO TID #12 tab 11/30/19 levoFLOXacin [Levaquin] 500 mg PO DAILY #10 tab 11/30/19 Past Medical History (General) - Patient Medical History Hx Seizures: No Hx Stroke: No Hx Dementia: No Hx Asthma: No Hx of COPD: Yes Hx Cardiac Disorders: No Hx Congestive Heart Failure: No Hx Pacemaker: No Hx Hypertension: No Hx Thyroid Disease: No Hx Diabetes: Yes Hx Gastroesophageal Reflux: Yes Hx Renal Disease: Yes Hx Cancer: No Hx of HIV: No Hx Hepatitis C: Yes Hx MRSA: Yes MRSA Source:: throat - Vaccination History Hx Tetanus, Diphtheria Vaccination: No Hx Influenza Vaccination: No Hx Pneumococcal Vaccination: No - Social History Hx Tobacco Use: No Hx Chewing Tobacco Use: Yes Hx Alcohol Use: Yes - history quit 28 years ago Hx Substance Use: No Hx Substance Use Treatment: No Hx Depression: No Hx Physical Abuse: No Hx Emotional Abuse: No Hx Suspected Abuse: No - Female History Patient : No Family Medical History - Family History Father Family History: Unknown Living Status: Hx Family Asthma: No Hx Family Congestive Heart Failure: No Hx Family Hypertension: No Hx Family Stroke: No Hx Cardiac Disease: Yes Hx Family Diabetes: Yes Hx Family Cancer: No Physical Exam - Physical Exam General Appearance: Alert, Ill Appearing Eyes, Ears, Nose, Throat Exam: PERRL/EOMI Neck: non-tender, full range of motion, supple, normal inspection Respiratory: chest non-tender, lungs clear, normal breath sounds, no respiratory distress, no accessory muscle use Cardiovascular/Chest: tachycardia Gastrointestinal/Abdominal: non tender, soft, no organomegaly, no pulsatile mass Extremity: normal range of motion, non-tender, normal inspection, pedal edema Neurologic: no motor/sensory deficits, alert, normal mood/affect, oriented x 3 Skin Exam: normal color Lymphatic: no adenopathy Progress - Progress Progress: 12/04/19 00:16 Pt was started on O2 and gave him nebs : feels better , however started getting hypotensive , IVF and dopamine started and labs were sent Pt became normotensive , case d/w ER physician [facility] who accepted the pt - Results/Orders Results/Orders: Laboratory Results WBC 19.0 K/mm3 (4.8-10.8) H 12/01/19 03:21 RBC 2.44 M/mm3 (4.70-6.10) L 12/01/19 03:21 Hgb 8.5 gm/dL (14.0-18.0) L 12/01/19 03:21 Hct 26.8 % (42.0-52.0) L 12/01/19 03:21 MCV 109.6 fl (80.0-94.0) H 12/01/19 03:21 MCH 34.7 pg (27.0-31.0) H 12/01/19 03:21 MCHC 31.7 g/dL (33.0-37.0) L 12/01/19 03:21 RDW 15.2 % (11.5-14.5) H 12/01/19 03:21 Plt Count 156 K/mm3 (130-400) 12/01/19 03:21 MPV 7.9 fl (7.40-10.4) 12/01/19 03:21 Absolute Neuts (auto) Not Reportable 12/01/19 03:21 Absolute Lymphs (auto) Not Reportable 12/01/19 03:21 Absolute Monos (auto) Not Reportable 12/01/19 03:21 Absolute Eos (auto) Not Reportable 12/01/19 03:21 Neutrophils % Not Reportable 12/01/19 03:21 Neutrophils % (Manual) 85.0 % (42.0-78.0) H 12/01/19 03:21 Lymphocytes % Not Reportable 12/01/19 03:21 Lymphocytes % (Manual) 12.0 % 12/01/19 03:21 Monocytes % Not Reportable 12/01/19 03:21 Monocytes % (Manual) 3.0 % 12/01/19 03:21 Eosinophils % Not Reportable 12/01/19 03:21 Basophils % Not Reportable 12/01/19 03:21 Platelet Estimate Normal (NORMAL) 12/01/19 03:21 RBC Morphology 1+macrocytosis 12/01/19 03:21 pCO2 20 mmHg (35-48) L 12/01/19 04:04 pO2 128 mmHg (83-108) H* 12/01/19 04:04 ABG pH 0.000 (7.35-7.45) L* 12/01/19 04:04 ABG O2 Saturation 94.7 % (95.0-99.0) L 12/01/19 04:04 ABG Deoxyhemoglobin 5.2 % (0.0-5.0) H 12/01/19 04:04 Oxyhemoglobin % 92.6 % (94.0-98.0) L 12/01/19 04:04 Carboxyhemoglobin % 0.5 % (0.5-1.5) 12/01/19 04:04 Methemoglobin % Sat 1.7 % (0.0-1.5) H 12/01/19 04:04 Calc Total Hemoglobin 8.1 g/dL (13.5-17.5) L 12/01/19 04:04 Sodium 125 mmol/L (135-145) L 12/01/19 03:01 Potassium 4.6 mmol/L (3.6-5.0) 12/01/19 03:01 Chloride 96 mmol/L (101-111) L 12/01/19 03:01 Carbon Dioxide < 5 mmol/L (21-31) L* 12/01/19 03:01 Anion Gap 28.6 (12-18) H 12/01/19 03:01 BUN 68 mg/dL (7-18) H D 12/01/19 03:01 Creatinine 2.56 mg/dL (0.6-1.3) H D 12/01/19 03:01 BUN/Creatinine Ratio 26.6 (10-20) H 12/01/19 03:01 Random Glucose 208 mg/dL (70-105) H 12/01/19 03:01 Serum Osmolality 277.3 mOsm/L (275-295) 12/01/19 03:01 Lactic Acid 19.2 mmol/L (0.5-2.2) H* 12/01/19 04:45 Calcium 9.2 mg/dL (8.4-10.2) 12/01/19 03:01 Total Bilirubin 1.6 mg/dL (0.2-1.0) H D 12/01/19 03:01 Direct Bilirubin 0.6 mg/dL (0-0.2) H 12/01/19 03:01 Indirect Bilirubin 1.0 mg/dL (0.2-0.8) H 12/01/19 03:01 AST 56 IU/L (10-42) H 12/01/19 03:01 ALT 39 IU/L (10-60) 12/01/19 03:01 Alkaline Phosphatase 71 IU/L (42-121) D 12/01/19 03:01 Ammonia 322 umol/L (10-35) H* 12/01/19 05:08 Troponin I < 0.02 ng/mL (0.01-0.05) 12/01/19 03:01 B-Natriuretic Peptide 28.5 pg/ml (0-100) 12/01/19 03:01 Serum Total Protein 4.6 gm/dL (6.4-8.2) L 12/01/19 03:01 Albumin 2.0 g/dl (3.2-5.5) L 12/01/19 03:01 Departure - Departure Clinical Impression: Metabolic acidosis, Hypotension, Sepsis Time of Disposition: :22 Disposition: Transfer to Hospital Condition: Serious Departure Forms: ED Discharge - Pt. Copy, Patient Portal Self Enrollment Referrals: Dereck Hinkle III, MD [Primary Care Provider] - 1-2 Weeks Home Medications: Ambulatory Orders Glimepiride 4 mg PO BID 09/06/16 Milk Thistle (Silybum Marianum [Milk Thistle] 125 mg PO DAILY 12/06/16 Sitagliptin-Metformin HCl [Janumet Xr 50-1000 mg] 1 tab PO BID 09/10/18 Tamsulosin HCl [Flomax] 0.4 mg PO DAILY #5 cap 09/10/18 Ascorbic Acid [Vitamin C] 500 mg PO DAILY 11/17/19 Cephalexin 500 mg PO BID 11/17/19 Cyanocobalamin [Vitamin B-12] 5,000 mcg PO DAILY 11/17/19 Furosemide 40 mg PO DAILY 11/17/19 Insulin Degludec [Tresiba Flextouch] 20 unit SC DAILY 11/17/19 Lactulose [Kristalose] 20 gm PO TID 11/17/19 Non-Formulary Medication 550 mg PO BID 11/17/19 Probiotic Product [Probiotic] 1 tab PO DAILY 11/17/19 Spironolactone 25 mg PO DAILY 11/17/19 levoFLOXacin [Levaquin] 500 mg PO DAILY #7 tab 11/19/19 Albuterol Inhaler [Ventolin Hfa Inhaler] 1 puff INH Q4HR 10 Days inh 11/30/19 Benzonatate 200 mg PO TID #12 cap 11/30/19 Ondansetron Tab [Zofran Tab] 0 mg PO TID #12 tab 11/30/19 levoFLOXacin [Levaquin] 500 mg PO DAILY #10 tab 11/30/19 Critical Care Note - Critical Care Note Total Time (mins): 30
--- NOTE | 2019-12-01 06:29 | CT ---
EXAM DESCRIPTION: CT ABDOMEN AND PELVIS WITHOUT CONTRAST CLINICAL HISTORY: abdomen bloating COMPARISON: None Available. TECHNIQUE: CT of the abdomen and pelvis without IV contrast. Evaluation of the solid organs and vasculature is suboptimal due to lack of IV contrast. FINDINGS: Lung Bases: Cardiomegaly. Bibasilar dependent atelectasis. Bones: Degenerative change of the spine and hips. Abdomen: Liver: Nodular contour of the contracted liver. Extensive periportal collaterals. Gallbladder: Calcified gallstones. Spleen, Pancreas, and Adrenal Glands: Splenomegaly. No definite abnormalities of the adrenal glands and pancreas. Kidneys: Retained contrast in the kidneys. Bilateral double-J ureteral stents. Excreted contrast in the kidneys. Nonobstructing bilateral nephrolithiasis, largest on the left in the inferior pole. Vasculature: Aortoiliac atherosclerosis. IVC is unremarkable. Stomach: Wall thickening of the distal esophagus. Other: No free intraperitoneal air. Large amount of ascites. Extensive body wall anasarca. Pelvis: Bladder: Excreted contrast in the urinary bladder. Bowel: No definite dilated loops of bowel. Mild wall thickening of the colon and small bowel. Appendix: Not identified. Pelvis: Prostate is not enlarged. IMPRESSION: 1. Findings compatible with cirrhosis and portal hypertension with splenomegaly. 2. Large volume of ascites. 3. Wall thickening of the large and small bowel. This could be seen with nonspecific enterocolitis of infectious or inflammatory etiology. Alternatively, hypoproteinemia could produce this appearance. 4. Cholelithiasis. 5. Bilateral nonobstructing nephrolithiasis. 6. Bilateral double-J ureteral stents in place with mild hydronephrosis which is stable. 7. Retained contrast in the renal cortex and collecting system. This may indicate some degree of renal dysfunction. 8. Cardiomegaly. 9. Wall thickening of the distal esophagus. This could be seen with esophagitis. Follow-up esophagram or endoscopy would provide additional characterization. This exam was performed according to our departmental dose-optimization program, which includes automated exposure control, adjustment of the mA and/or kV according to patient size and/or use of iterative reconstruction technique. Electronically signed by: Thony Mehta 12/01/2019 4:25 AM CDT
--- NOTE | 2019-12-01 06:40 | RAD ---
EXAM DESCRIPTION: X-ray single view chest. CLINICAL HISTORY: 54 years Male, SOB COMPARISON: Chest x-ray and chest CT performed on 11/30/2019 TECHNIQUE: Single portable x-ray view of the chest performed on 12/01/2019 at 2:45 AM FINDINGS: The lungs are hypoinflated and there is slight crowding of the central pulmonary vessels. The lateral costophrenic sulci are clear. No dense airspace consolidation is identified. There is no evidence of a pneumothorax. The cardiac silhouette is normal in size and configuration. The mediastinal contours are normal. No acute osseous abnormality is identified. There are remote postsurgical changes of the right humeral head. No focal soft tissue abnormalities are seen. Lines and tubes: None. IMPRESSION: Hypoinflation of the lungs with crowding of the central pulmonary vessels. No focal airspace consolidation is appreciated at this time. Electronically signed by: Mariam Dixon DO 12/01/2019 4:15 AM CDT
--- NOTE | 2019-12-01 06:46 | CT ---
CT HEAD WITHOUT CONTRAST CLINICAL HISTORY: Headache. COMPARISON: [None.] TECHNIQUE: Axial unenhanced CT imaging of the brain. Reformatted coronal and sagittal images obtained. This examination was performed according to our departmental dose optimization program, which includes automated exposure control, adjustment of the mA and/or kV according to patient size and/or use of iterative reconstruction technique. FINDINGS: Ventricles and extra-axial fluid spaces are minimally prominent due to age-related cortical volume loss. There is no intraparenchymal or extra-axial bleed. No mass or midline shift. No acute infarct seen. No edema or hyperdense vessel. Normal cerebellum and vermis. Fourth ventricle is midline. Prepontine cisterns are not effaced. Normal sella contents. Intraorbital contents appear normal. Clear. The sinuses. Mastoid air cells are well aerated bilaterally. Intact skull base and calvarium. Normal scalp soft tissues. Prominent retrocerebellar fluid collections compatible with enlarged cisterna magna or arachnoid cyst. IMPRESSION: 1. Mild generalized cortical atrophy. No intracranial acute finding. Electronically signed by: Myriam Sousa DO 12/01/2019 4:17 AM CDT
== END 2019-12-01 05:13 | disposition short-term general hospital (02) ==
LOC: ER 01:53
DX: A41.9 Sepsis, unspecified organism (principal); I95.9 Hypotension, unspecified; E87.2 Acidosis; R06.02 Shortness of breath; J44.9 Chronic obstructive pulmonary disease, unspecified; E11.22 Type 2 diabetes mellitus with diabetic chronic kidney disease; N18.9 Chronic kidney disease, unspecified; K21.9 Gastro-esophageal reflux disease without esophagitis; Z86.19 Personal history of other infectious and parasitic diseases; Z79.4 Long term (current) use of insulin; Z79.899 Other long term (current) drug therapy
CPT/HCPCS: 36600; 70450; 71045; 74176; 80048; 80076; 82140; 82803; 82805; 83605; 83880; 84484; 85025; 87040; 93005; 94640; 94760; J1265; J1940; J1956; J7030; J7620